=== PATIENT | male | born 1955 | race Caucasian/White ===

== ENCOUNTER 2018-10-13 19:14 | Emergency (ER) | payer BC, SELFPAY ==
[2018-10-13 19:16] VITALS: BP 142/80; PULSE 104; RESP 18; TEMP 36.9; O2SAT 95; BMI 49.7
--- NOTE | 2018-10-13 20:57 | ED.VIS.GEN ---
History of Present Illness Chief Complaint: Complaint Narrative: Patient presenting secondary to constipation and dysuria. Patient reports that about a week ago he was dealing with diarrhea. He reports that he took some antidiarrheal medications, and now is been constipated for the last 6 days. He reports that today he tried to have a bowel movement and pooped rabbit turds. Patient denies any abdominal pain or fevers. He does reports that today he is now having some dysuria. He does report that he has a history of having urinary tract infections in the past and states that this feels similar. He also reports to me that he typically is unable to give a urine sample because when he has to go he has to go right now. Past Medical History - Allergies and Home Meds Allergies/Adverse Reactions: Allergies cephalexin [From Keflex] Adverse Reaction (Verified 10/13/18 19:16) Other PAPER TAPE Allergy (Uncoded 10/13/18 19:16) Hives Primary Care Physician: [facility],Out of [Primary Care Provider] - 3-5 Days Review of Systems All systems negative except as indicated General: Denies: Fever Gastrointestinal: Reports: Constipation Genitourinary: Reports: Dysuria Physical Exam Vital Signs/Narrative: Vital Signs Temp Pulse Resp BP Pulse Ox 10/13/18 19:16 98.4 F 104 H 18 142/80 H 95 General: - - Obese somewhat confrontational male sitting on side of the bed no acute distress Head: Normocephalic, Atraumatic ENT: Moist mucous membranes, No rhinorrhea Neck: Supple, Nontender Cardiovascular: No murmurs, Tachycardia Respiratory: No distress, CTA bilaterally, Chest nontender Abdomen: Soft, Nontender, Nondistended, Normal bowel sounds Extremities: Nontender Neurological: Alert, Oriented x3, Cranial nerves II-XII grossly intact, Normal Strength, Normal Sensation Psychological: Normal affect, Normal Mood Diagnostic/Tx/Re-eval - Medical Decision Making Patient presented secondary to constipation and dysuria. Patient was kept in the emergency department for 2 hours, and when he attempted to give us a urine sample he missed the cup. Patient reports that he has a history UTIs in the past, will go with that and the patient will be given a dose of Bactrim and a short course of such. Patient will be discharged with a course of lactulose. He is to follow-up with primary care. ED Disposition - Plan for ED Patient: Disposition: Home or Assisted Living Diagnosis: Constipation, Dysuria Instructions: Bladder Infection, Male (Adult) Prescriptions: Smz/Tmp Ds [Bactrim Ds] 1 tab PO BID #6 tab Prescription Printed Lactulose 10 gm PO DAILY #90 ml Prescription Printed Referrals: [facility] Doctor,Out of [Primary Care Provider] - 3-5 Days
[2018-10-13] MEDS: Smz/Tmp Ds Tablet 1 TABLET PO (21:38)
[2018-10-13] MEDS: Lactulose 20 GM/30 ML UDC PO (21:43)
== END 2018-10-13 21:44 | disposition home or self-care (01) ==
PROVIDERS: Emergency Provider Emergency Medicine
DX: K59.00 Constipation, unspecified (principal); R30.0 Dysuria; E66.9 Obesity, unspecified; Z87.440 Personal history of urinary (tract) infections
CPT/HCPCS: 99283